=== PATIENT | male | born 1960 | race Caucasian/White ===

== ENCOUNTER 2018-10-24 10:18 | Emergency (ER) | payer OTHER ==
[2018-10-24 10:54] VITALS: RESP 18; TEMP 97.5
[2018-10-24] MEDS ORDERED: FENTANYL 100MCG/2ML SOL IV ONE (11:03)
[2018-10-24] MEDS ORDERED: SODIUM CHLORIDE 0.9% 1000ML 1,000 ML IV NR (11:15)
[2018-10-24 11:21] LABS: BASOPHILS % (AUTO) 1 % (0-3); EOSINOPHILS % (AUTO) 1 % (0-9); HEMATOCRIT 36 % (39-53); HEMOGLOBIN 12.4 gm/dl (13.5-17.7); LYMPHOCYTES % (AUTO) 29.1 % (10-50); MEAN CORPUSCULAR HEMOGLOBIN 33.7 pg (27.0-32.0); MEAN CORPUSCULAR HGB CONC 34.2 gm/dl (32.0-36.0); MEAN CORPUSCULAR VOLUME 98 fL (80-100); MONOCYTES % (AUTO) 5.8 % (0-12); NEUTROPHILS % (AUTO) 62.4 % (37-80)
[2018-10-24] MEDS ORDERED: FENTANYL 100MCG/2ML SOL ONE (11:25)
[2018-10-24 11:28] LABS: ALBUMIN 3.8 gm/dl (3.4-5.0); CALCIUM 8.4 mg/dl (8.5-10.1); CARBON DIOXIDE 27.4 mEq/L (21-32); CREATININE 1.24 mg/dl (0.80-1.30); POTASSIUM 3.9 mMol/L (3.5-5.1); TOTAL PROTEIN 6.4 gm/dl (6.4-8.2)
[2018-10-24] MEDS ORDERED: ENOXAPARIN 100 MG SOL SC ONE (11:28)
[2018-10-24] MEDS ORDERED: ENOXAPARIN 100 MG SOL SC SCH (11:30)
[2018-10-24 11:36] VITALS: BP 109/72; PULSE 72; O2SAT 96
[2018-10-24] MEDS ORDERED: BACITRACIN 500 U/GM OIN TOP ONE ×2 (11:40→11:41)
== END 2018-10-24 11:59 | disposition short-term general hospital (02) | DRG 923 ==
LOC: ED 10:18
DX: T33.532A Superficial frostbite of left finger(s), initial encounter (principal); T33.531A Superficial frostbite of right finger(s), initial encounter
CPT/HCPCS: 36415; 80053; 85025; 96372; 96374; 99283; 99291; G0390; J1650; J3010; A6446; A9270-GY